=== PATIENT | male | born 1960 | race Caucasian/White ===

== ENCOUNTER 2023-10-12 20:00 | Inpatient (IN) | payer BC, SELFPAY ==
[2023-10-12] VITALS (9 sets, daily range): BP systolic 120–156; BP diastolic 77–98; BMI 26.1; BMI 25.6
[2023-10-12 14:52] LABS: % Basophils 0.5 % (0-2); % Eosinophils 5.4 % (0-6); % Immature Granulocytes 0.2 % (0-0.5); % Lymphocytes 34.8 % (20.5-51.1); % Monocytes 10.9 % (1.7-9.3); % Neutrophils 48.2 % (42.2-75.2); Absolute Eosinophils 0.5 10^3/uL (0-0.7); Absolute Lymphocytes 3.1 10^3/uL (1.2-3.4); Absolute Neutrophils 4.3 10^3/uL (1.4-6.5); Hematocrit 42.8 % (39.0-52.0); Hemoglobin 14.6 g/dL (13.0-18.0); Mean Corp Hgb Conc. 34.1 g/dL (33.0-37.0); Mean Corpuscular Volume 90.9 fL (80.0-94.0); Mean Platelet Volume 10.5 fL (7.4-10.4); Nucleated Red Blood Cells % 0 % (-); Platelet Count 241 10^3/uL (130-400); Red Blood Cell Count 4.71 10^6/uL (4.70-6.10); Red Cell Dist. Width 12.7 % (11.5-14.5); White Blood Cell Count 8.9 10^3/uL (4.8-10.8)
[2023-10-12 15:04] LABS: ALT (SGPT) 40 U/L (0-50); AST (SGOT) 43 U/L (17-59); Albumin 4.5 g/dl (3.5-5.0); Alkaline Phosphatase 55 U/L (38-126); Blood Urea Nitrogen 15 mg/dl (9-20); Calcium 9.6 mg/dl (8.4-10.2); Carbon Dioxide 30 mmol/L (22-30); Chloride 104 mmol/L (98-107); Glucose 103 mg/dl (70-99); Potassium 4.5 mmol/L (3.5-5.1); Sodium 138 mmol/L (135-145); Total Bilirubin 0.9 mg/dl (0.2-1.3); Total Protein 7.3 g/dl (6.3-8.2); eGFR > 60.00
--- NOTE | 2023-10-12 15:24 | EDRN ---
Pt revitalized. Pt states he is in severe pain and that he needs a CT scan and pain medications, informed that we will be getting him a room and having an ER doctor evaluate him and they can order imaging and medications.
[2023-10-12 15:29] LABS: Lipase > 4000 U/L (23-300)
[2023-10-12] MEDS: DILAUDID 0.5 MG IV ×3 (15:44→22:27)
[2023-10-12] MEDS: ZOFRAN 4 MG IV (15:45)
--- NOTE | 2023-10-12 15:47 | ED.GENMED ---
History of Present Illness
General
Chief Complaint: Abdominal Symptoms
Source: patient
Exam Limitations: none
Time Seen by Provider: 10/12/23 15:36
Nursing documentation reviewed up to this point in time: agreed with
History of Present Illness
History of Present Illness:
Patient to ED wtih severe upper abd. pain. Pain started today. Denies fever/chills. History of pancreatitis in the past. 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 Not had pancreatitis since. +nause. No vomiting. Brought to ED
by family for eval.
Past History
Past History
ED Past Medical History: CAD, HTN, Other (duodenal ulcer, pancreatitis) and Other (ankylosing spondylitis)
ED Past Surgical History: Cholecystectomy and Other (Whipple 09/2021)
Social History
Tobacco: Non-smoker
Alcohol: None
Drug: None
Review of Systems
Review of Systems
Allergies reviewed?: Yes
All Other Systems: ROS reviewed and negative except as documented in HPI and ROS
Constitutional: Reports no symptoms
EENT: Reports no symptoms
Respiratory: Reports no symptoms
Cardiac: Reports no symptoms
ABD/GI: Reports abdominal pain (upper abd ppain)
: Reports no symptoms
Musculoskeletal: Reports no symptoms
Skin: Reports no symptoms
Neurological: Reports no symptoms
Psychiatric: Reports no symptoms
Phy Exam
General Physical Exam
General Presentation: moderate distress
General age: appears stated age
General Skin: warm and dry
General Habitus: normal
General Mental: alert
Gastrointestinal Exam
Gastrointestinal Exam: normal bowel sounds, soft, no organomegaly and guarding
Palpation: left upper quadrant: Severe tenderness and right upper quadrant: Severe tenderness
Musculoskeletal Exam
Musculoskeletal Exam: full ROM and neuro vasc intact
Skin Exam
Skin Exam: normal color, warm/dry and no rash
Psychiatric Exam
Psychiatric Exam: normal mood/affect
Course
Orders/Labs/Results
Orders:
Orders
10/12/23 14:38
Complete Blood Count/With Diff Urgent
Comprehensive Metabolic Panel Urgent
Lipase Urgent
10/12/23 15:43
HYDROmorphone [Dilaudid] 0.5 mg .ROUTE .STK-MED ONE
Ondansetron Injectable [Zofran] 4 mg .ROUTE .STK-MED ONE
10/12/23 15:44
HYDROmorphone [Dilaudid] 0.5 mg IV NOW STA
10/12/23 15:45
CT Abd/pel W Iv And Oral Contr Urgent
Comment:
Reason For Exam: abd. pain. [facility] whipple
Iohexol [Omnipaque] See Protocol PO NOW STA
Ondansetron Injectable [Zofran] 4 mg IV NOW STA
10/12/23 15:46
0.9% Sodium Chloride 1000 ml [Nss] 1,000 ml IV BOLUS
10/12/23 16:03
HYDROmorphone [Dilaudid] 0.5 mg IV NOW STA
10/12/23 17:09
HYDROmorphone [Dilaudid] 1 mg IV NOW STA
10/12/23 19:15
0.9% Sodium Chloride 1000 ml [Nss] 1,000 ml IV 125 mls/hr
10/12/23 19:28
Admit/Transfer Patient As Directed
Co-Sign Provider:
Level of Care: Inpatient admission
Assign to:: Medical/Surgical
Physician / Group: hta,ash
Diagnosis: acute pancreatitis
Reason for Hospitalization: acute pancreatitis
Expected length of stay greater than two midnights?: Yes
ELOS- Estimated Length of Stay in days: 3
I certify the patient meets the requirements for IP care: Yes
10/12/23 19:30
Code Status As Directed
Resuscitation Status: Full Code
PRN Pain Medication Management As Directed
May give lesser potent ordered pain med per pt: Yes
preference::
Protocol:: Medication orders for pain may be administered in a
manner that supports deferring to patient preference
when the pt is:
- Requesting an ordered lesser potent pain medication.
Least to most potent pain medications are defined
as: acetaminophen < NSAID < tramadol < opioids
(morphine, oxycodone, hydromorphone).
- Requesting a lesser dose of the same medication IF
ORDERED.
- Requesting a less intrusive route of administration
if both routes are prescribed by the provider (PO <
IV).
10/12/23 20:33
HYDROmorphone [Dilaudid] 1 mg IV Q3HPRN PRN
HydrALAZINE [Apresoline] 10 mg IV Q6HPRN PRN
Lactated Ringers [Lr] 1,000 ml IV 200 mls/hr
10/12/23 20:33
GASTROINTESTINAL CONSULT Routine
Consulting Provider: Clay Paiz
Was physician already notified: Yes
Activity As Directed
Activity Level: As Tolerated
Vital Signs As Directed
Frequency: Per unit guidelines
DX Deep Vein Thrombosis Video Routine
10/12/23 21:14
Triglycerides Urgent
Comment: If not done in the ED
10/13/23 Breakfast
NPO
Allow oral meds: Yes
Allow clear liquids: No
C-Reactive Protein IN AM
Cardiovascular Evaluation IN AM
Is patient fasting: Yes
Complete Blood Count/No Diff IN AM
Lipase IN AM
10/13/23 08:00
Pantoprazole [Protonix IV] 40 mg IV DAILY
10/13/23 18:00
Enoxaparin Sodium [Lovenox] 40 mg SC QPM
10/14/23 06:00
Complete Blood Count/No Diff IN AM
Lipase IN AM
10/15/23 06:00
Complete Blood Count/No Diff IN AM
Lipase IN AM
10/16/23 06:00
Complete Blood Count/No Diff IN AM
Lipase IN AM
10/17/23 06:00
Complete Blood Count/No Diff IN AM
Lipase IN AM
Abnormal Lab Results
10/12/23
14:38
MPV 10.5 H fL
(7.4-10.4)
Absolute Monos (auto) 1.0 H 10^3/uL
(0.1-0.6)
Monocytes % 10.9 H %
(1.7-9.3)
Glucose 103 H mg/dl
(70-99)
Lipase > 4000 H* U/L
(23-300)
10/12/23 14:38
10/12/23 14:38
Vital Signs
Initial and Last Documented VS:
Initial Vital Signs
Temp Pulse Resp BP Pulse Ox
98.0 F 72 16 137/96 98
10/12/23 14:31 10/12/23 14:31 10/12/23 14:31 10/12/23 14:31 10/12/23 14:31
Last Documented Vital Signs
Temp Pulse Resp BP Pulse Ox
97.4 F 67 20 140/85 97
10/12/23 20:43 10/12/23 20:43 10/12/23 20:43 10/12/23 20:43 10/12/23 20:43
*Radiology
Radiology exam reviewed: radiology read reviewed
*Pulse Oximetry
Patient hypoxic: no
*Critical Care Note
Total Time (30-74mins, 75-104mins- exclusive of procedures): Not Applicable
Update Note
Update Note:
Lipase >4000, severe upper abd. pain. Will admit to hospitalist for pancreatitis. Pain meds, IVF in ED.
ED Attending Note
-
Portions of this chart may have been created with voice recognition software.� Occasional wrong word or��sound alike� substitutions may have occurred due to the inherent limitations of voice recognition software.
Discharge Plan
Departure
Patient Disposition: Admit
Date of Disposition: 10/12/23
Time of Disposition: 19:02
Presentation/result/management discussed w/ accepting MD/DO: Hospitalist
Patient with high blood pressure during this ER visit?: No
Condition: Fair
Covid-19: Not Applicable
Discharge Problem:
Acute pancreatitis
Interventions
Interventions:
*Risk Screen - Suicide Last Done: 10/12/23 20:25
*General Assessment Last Done: 10/12/23 20:25
*Neglect/Abuse Screening Last Done: 10/12/23 20:25
ED- Fall Risk Assessment Last Done: 10/12/23 16:20
*ED COVID-19 Vaccine History Last Done: 10/12/23 20:25
*Nursing Disposition Last Done: 10/12/23 20:25
ZY-Uzxsik-Yjqbbvgely Assessment Last Done: 10/12/23 16:20
Discharge Date and Time
Discharge Date/Time: 10/12/23 20:26
[2023-10-12] MEDS: NSS 1000 IV ×2 (15:53→19:53)
[2023-10-12] MEDS: OMNIPAQUE 50 ML PO (15:58)
[2023-10-12] MEDS: DILAUDID 1 MG IV ×2 (17:18→20:38)
--- NOTE | 2023-10-12 19:12 | HPS.HSE ---
Family Physician
-
Family Physician: * NONE
Chief Complaint
-
abdominal pain
History of Present Illness
62 year old with PMH FOR CAD, HTN, Pancreatitis, ankylosing spondylitis presented to us with severe upper abd. pain radiating to left side back. Pain started today. denied n/v. Denies fever/chills. Patient denies headache, dizziness, syncopal
episode. Patient denied chest pain or short of breath.patient denied dysuria hematuria.
Noted elevated lipase in ER. CT with Acute interstitial edematous pancreatitis. Patient received Dilaudid, normal saline, Zofran in ER. Admitted for further management
Medical History
Past Medical History
Past Medical History: Reports Other
Additional Past Medical History:
Coronary artery disease
hypertension
Duodenal ulcer
ankylosing spondylitis
Past Surgical History: Reports Other
Additional Past Surgical History:
Whipple surgery
cholecystectomy
Social History
Tobacco: Former Smoker
Alcohol: Daily (Whine)
Drug: None
Family History
Family History: Not pertinent
Allergies / Home Medications
Allergies reflects when Allergies were last updated in [employer].
Home Medications with original date entered in [employer]
Allergy/Medication List:
Allergies
Allergy/AdvReac Type Severity Reaction Status Date / Time
No Known Allergies Allergy Verified 10/12/23 14:35
Review of Systems
-
Constitutional: Reports No Symptoms
EENT: Reports No Symptoms
Respiratory: Reports No Symptoms
Cardiac: Reports No Symptoms
Abdomen/GI: Reports Abdominal Pain
: Reports No Symptoms
Musculoskeletal: Reports No Symptoms
Skin: Reports No Symptoms
Neurological: Reports No Symptoms
Endocrine: Reports No Symptoms
Hematologic/Lymphatic: Reports No Symptoms
Psych: Reports No Symptoms
Physical Exam
Vital Signs
Vital Signs
Temp Pulse Resp BP Pulse Ox
98.2 F 71 22 146/96 95
10/12/23 15:22 10/12/23 18:30 10/12/23 18:30 10/12/23 18:26 10/12/23 18:30
Physical Exam
General: Well Developed, Well Nourished and No Apparent Distress
HEENT: NormoCephalic, Moist mucous membranes and Atraumatic
Respiratory: Clear
Cardiac: S1/S2 and Regular Rhythm; No Murmur or Rub
GI: Soft, Non Distended, Normal Bowel Sounds and Tender; No Organomegaly
Rectal: Deferred by Provider
Musculoskeletal: No Clubbing, No Cyanosis and No Edema
Skin: No Rash
Neuro: Nonfocal/grossly intact
Laboratory Results
-
10/12/23 14:38
10/12/23 14:38
Laboratory Results
Total Bilirubin 0.9 mg/dl (0.2-1.3) 10/12/23 14:38
AST 43 U/L (17-59) 10/12/23 14:38
ALT 40 U/L (0-50) 10/12/23 14:38
Alkaline Phosphatase 55 U/L (38-126) 10/12/23 14:38
Lipase > 4000 U/L (23-300) H* 10/12/23 14:38
Data Reviewed
-
CT Scan: Report Reviewed by me
Lab Data: Labs Reviewed by me
Impression/Plan
-
#acute pancreatitis
-keep NPO
-LR 150cc/hr
-GI consult
-Lipase >4000
-Dilaudid prn for pain
-IV PPI
-CT with Acute interstitial edematous pancreatitis. No loculated peripancreatic fluid collection. Previous Whipple procedure.
2. Midline anterior abdominal wall incisional hernia containing segments of nondilated small bowel.
3. Colonic diverticulosis.
#hxt of Whipple surgery
#s/p Cholecystectomy
#hxt of duodenal ulcer
#hxt of HTN/CAD
-hydralazine prn for SBp>160
#DVT prophylaxis
-scd
#CODE status
-full code
--- NOTE | 2023-10-12 19:43 | W.PN.UPDATE ---
Update Note
Progress Note Update
This note serves as an addendum to the H&P by beader tender RON Palak LOWE
HPI
62M HX Whipple procedure for precancer of pancreas in [place] September 2021 , HX pancreatitis , Duodenal ulcer a/w abrupt onset of severe upper abdominal pain. No nausea. No vomiting.Reports drink wine last night
PMHx
CAD, HTN, Other (duodenal ulcer, pancreatitis) and Other (ankylosing spondylitis)
PSHx
Cholecystectomy and Other (Whipple 09/2021)
Vital Signs
Temp Pulse Resp BP Pulse Ox
98.2 F 71 22 146/96 95
10/12/23 15:22 10/12/23 18:30 10/12/23 18:30 10/12/23 18:26 10/12/23 18:30
PE
Gen: not toxic
HEENT: anicteric
Neck: supple
Lungs: CTA
Cor: RRR S1 S2
Abdomen: tender epigastrium , NRT , NG POS BS
COOK HELPER MEAT: AAO3 NFND
MS: no edema
Psych: appropriate
Data
Nl CBC
Lipase > [address] Abd/pel W Iv And Oral Contr
1. Acute interstitial edematous pancreatitis. No loculated peripancreatic fluid collection. Previous Whipple procedure.
2. Midline anterior abdominal wall incisional hernia containing segments of nondilated small bowel.
3. Colonic diverticulosis.
4. Additional chronic findings, as detailed above
NO PRIOR hospitalist admission:
ASSESSMENT & PLAN
Pending Rx reconciliation
Acute pancreatitis; recurrent
Unclear etiology - suspect ETOH
HX pancreatitis ,
HX Whipple procedure for precancer of pancreas in [place] September 2021 - removed hard of the pancreas
- NPO
- LR IV 200cc/H
- PRN Analgesia , Anti emetics
- GI consult
DVT Px: LMWH
Code: Full code
IP MS
--- NOTE | 2023-10-12 20:45 | PTCARENOTE ---
Pt transferred from ED. Pt AAOX3, able to make needs known, VSS. Pt having 9/10 pain. Pt oriented to unit, call quiñonez within reach, bed in lowest position. Will continue with current plan.
[2023-10-12] MEDS: LR 1000 IV (21:36)
[2023-10-12 21:41] LABS: Triglycerides 56 mg/dl (10-149)
[2023-10-12] MEDS: COMPAZINE 5 MG IV (22:28)
[2023-10-13] MEDS: DILAUDID 1 MG IV ×2 (01:27→07:56)
[2023-10-13] MEDS: LR 1000 IV ×5 (02:37→22:49)
[2023-10-13 07:00] VITALS: BP 124/80
[2023-10-13] MEDS: NSS (PRESERVATIVE FREE) 10 ML IV (07:55)
[2023-10-13] MEDS: PROTONIX IV 40 MG IV (07:55)
[2023-10-13 08:28] LABS: Hematocrit 42.2 % (39.0-52.0); Hemoglobin 14.6 g/dL (13.0-18.0); Mean Corp Hgb Conc. 34.6 g/dL (33.0-37.0); Mean Corpuscular Hgb 31.6 pg (27.0-31.0); Mean Corpuscular Volume 91.3 fL (80.0-94.0); Mean Platelet Volume 10.5 fL (7.4-10.4); Platelet Count 209 10^3/uL (130-400); Red Blood Cell Count 4.62 10^6/uL (4.70-6.10); Red Cell Dist. Width 12.9 % (11.5-14.5); White Blood Cell Count 11.6 10^3/uL (4.8-10.8)
[2023-10-13 09:50] LABS: HDL Cholesterol 50 mg/dl; LDL Cholesterol, Calculated 26 mg/dl; Total Cholesterol 92 mg/dl (50-199); Triglyceride 83 mg/dl (10-149); Very Low Density Lipoprotein 16 mg/dl (0-30)
[2023-10-13 10:06] LABS: Lipase 3834 U/L (23-300)
--- NOTE | 2023-10-13 11:29 | W.PN.HOSP.TC ---
Today's Communication/Plan
-
cont IVF
pain mgmt
GI consult
Assessment / Plan
Assessment / Plan
62yo M with PMHx of CAD, COPD, HLD, HTN, Hx of IPMN s/p Whipple in 2021 came with severe abdominal pain started at noon on the day of admission, found acute poancreatitis. Patient used to have a glass of wine with dinner.
A/P:
#Acute alcohol-induced pancreatitis
#Hx of Whipple with resultant pancreatic insufficiency
CT showed postOP changes without new cyst
Triglycerides, calcium is WNL
Gall bladder absent'
Emphasize alcohol abstinence
NPO and advance diet as tolerated
IVF
Pain mgmt
GI consult
#Essential HTN
#HLD
#COPD not in exacerbation
cont home meds
#Minimal leukocytosis
no signs of infection
follow cbc and fever curve
#Hepatic cyst
#Midline abdominal postOP hernia
#Diverticulosis w/o diverticulitis
#Grade 1 antherolisthesis of L5 on S1
#Mild BPH
Follow with PCP upon D/C
DVT ppx on lovenox
full code
I have spent at least 56min reviewing chart, test results, communication with consultants and direct patient care
Anticipated Discharge: 24 - 48 hours
Subjective/Interval History
-
Date of Service: October 13, 2023
Objective Data
-
Labs:
Laboratory Results
10/13/23
08:09
WBC 11.6 H
Hgb 14.6
Hct 42.2
Plt Count 209
Vital Signs:
Vital Signs
Temp Pulse Resp BP Pulse Ox
99.3 F 91 16 124/80 94
10/13/23 07:00 10/13/23 07:00 10/13/23 07:00 10/13/23 07:00 10/13/23 07:00
I&O
10/12/23 10/13/23 10/14/23
06:59 06:59 06:59
Intake Total 1919 / 1919
Output Total 300 / 300
Balance 1620 / 1620
Review of Systems
-
Abdomen/GI: Reports Abdominal Pain
Physical Exam
-
General: Well Developed and Well Nourished
Respiratory: Clear to Auscultation
GI: Nondistended and Tender
Genito-urinary: No Costovertebral Tender
Musculoskeletal: No Clubbing, No Cyanosis and No Edema
Skin: Warm
Neuro: Awake, Alert, Oriented and AO x 3
Psych: Calm
--- NOTE | 2023-10-13 12:44 | CON.GI ---
Addendum entered and electronically signed by Clay Paiz MD 10/13/23 17:25:
clear liquid diet
Addendum entered and electronically signed by Clay Paiz MD 10/13/23 16:13:
I saw and examined the patient.
The CHARGEBACK ANALYST's note was reviewed and I agree with the note.
Impression:
Recurrent Acute pancreatitis ( 2 episodes in the past)
S/P Whipple (2021)-> [facility], secondary to IPMN head of the pancreas.
Ankylosing spondylitis on Humira
plan
Possible etiology alcohol. Liver test normal. TG normal.
N.p.o.
Continue IV fluid
Pain management as per medical team
Will check IgG4
Advised on alcohol abstinence
Patient follows up with pancreatic surgeon at [facility]. Advised to follow-up after discharge
Original Note:
Consultation
-
Date/Time Consultation Requested: 10/12/232032
Date/Time Consultation Performed: 10/13/23 1220
Requesting Provider: SUKHWINDER Armenta
Performing Provider: Dr. Paiz/SUKHWINDER Mckenna
Reason for Consultation: pancreatitis
Medical History
Chief Complaint / HPI
Chief Complaint: abd pain
History of Present Illness:
62-year-old male with past medical history of CAD, hypertension, ankylosing spondylitis currently on Humira, history of pancreatitis first episode in 2006 unknown etiology, repeat episode of pancreatitis August 2021 with imaging finding IPMN with
further workup discovering malignant cells with subsequent Whipple at [facility] in 2021. History of anastomotic ulcer with GI bleed with treatment with 'cauterization' and Protonix. Repeat endoscopy with documented healing. Who was last followed with
his GI approximately 1 year ago in [place] who presents to the emergency room with acute onset of abdominal pain. Asked to evaluate for pancreatitis. The patient states that last evening he developed acute onset of abdominal pain which was just
the left of the umbilicus. This was sharp and dull with radiation around to the left flank. Movement made worse. Pain medication makes better. Was associated with some chills. Patient had some mild nausea although he felt this was secondary to
pain medication. This was reminiscent of his prior attacks of pancreatitis although not as bad as his first episode. He proceeded to come to the emergency department. He states the pain is improved from arrival. The pain is still present. He
felt warm last evening and a little bit cold at the present time. He denies any fevers, vomiting, melena, hematochezia, acholic stools, bilirubinuria, dysphagia or odynophagia. no early satiety or unintentional weight loss. The patient does not
smoke. He drinks approximately 2 glasses of wine daily. He does not drink more alcohol than that. He has no family history of pancreatitis. He has no family history of GI malignancy. He has no new changes in medications. His triglycerides are
normal. He is on Creon chronically after the Whipple. His last colonoscopy was approximately 3 years ago. He does not recall any polyps at that time. He believes he has had colon polyps in the past. He is currently getting lactated Ringer's at
200 cc an hour. WBC 11.6 (up from 8.9), hemoglobin 14.6 same from yesterday 14.6, hematocrit 42.2 down from 42.8, platelets 209,Sodium 138, potassium 4.5, chloride 104, CO2 30, BUN 15, creatinine 0.7, glucose 103, calcium 9.6, total bilirubin 0.9,
AST 43, ALT 40, alk phos 55, CRP 23.8, albumin 4.5, triglycerides 83, lipase 3834 down from greater than 4000. Patient's temperature this morning was 99.3, pulse 91, BP 124/80.
Past Medical History
Past Medical History: CAD, HTN and Other (Pancreatitis (2006, 2021), IPMN with malignant cells requiring Whipple, ankylosing spondylitis on Humira, anastomotic ulcer/Whipple)
Past Surgical History: Orthopedic (Metatarsal removal, ulnar nerve repair) and Other (Whipple)
Social History
Tobacco: Former Smoker
Alcohol: Daily (2 to 3 glasses wine daily)
Drug: None
Personal:
Living: With Family
Family History
Family History: Other (No family history of gastrointestinal malignancy or IBD)
Allergies / Home Medications
Allergy/AdvReac Type Severity Reaction Status Date / Time
No Known Allergies Allergy Verified 10/12/23 14:35
�Medication �Instructions �Recorded
adalimumab 40 mg/0.8 mL 40 mg SC Q2W Autoimmune Disorder 10/12/23
subcutaneous syringe kit (Humira)
albuterol sulfate 90 mcg/actuation 2 puff inhalation R Q6HPRN PRN 10/12/23
aerosol inhaler sob/wheezing
alprazolam 1 mg tablet 1 mg PO BIDPRN PRN anxiety 10/12/23
aspirin 81 mg tablet,delayed 81 mg PO DAILY Blood Clot 10/12/23
release Prevention/Tx
ezetimibe 10 mg tablet 10 mg PO DAILY High Cholesterol 10/12/23
famotidine 40 mg tablet 40 mg PO HS Gastrointestinal Issue 10/12/23
fluticasone propionate 50 1 spray intranasal DAILYPRN PRN 10/12/23
mcg/actuation nasal allergies
spray,suspension
rzpkpq-maozvxqe-ixuelxn 1 cap PO BID@0800,1200 10/12/23
24,000-76,000-120,000 unit Gastrointestinal Issue
capsule,delayed rel (Creon)
awymug-iajkvido-jtstprh 2 - 3 cap PO QPM Gastrointestinal 10/12/23
24,000-76,000-120,000 unit Issue
capsule,delayed rel (Creon)
metoprolol succinate 25 mg 25 mg PO DAILY Heart Failure 10/12/23
tablet,extended release 24 hr
pantoprazole 40 mg tablet,delayed 40 mg PO DAILY Gastrointestinal 10/12/23
release Issue
rosuvastatin 40 mg tablet 40 mg PO DAILY High Cholesterol 10/12/23
valsartan 40 mg tablet 40 mg PO DAILY Blood Pressure 10/12/23
Review of Systems
-
All other systems: A 12 pt ROS was Negative except as stated above in HPI
Vital Signs
Temp Pulse Resp BP Pulse Ox
99.3 F 91 16 124/80 94
10/13/23 07:00 10/13/23 07:00 10/13/23 07:00 10/13/23 07:00 10/13/23 07:00
Physical Exam
Exam
General: No Apparent Distress
HEENT: Anicteric
Respiratory: Clear
Cardiac: Regular Rhythm
GI: Soft, Non Distended, Normal Bowel Sounds and Tender (To the left of the umbilicus extending to left flank)
Musculoskeletal: No Edema
Skin: Warm and Dry
Neuro: AO x 3
Psych: Calm
Results
WBC 11.6 10^3/uL (4.8-10.8) H 10/13/23 08:09
Hgb 14.6 g/dL (13.0-18.0) 10/13/23 08:09
Hct 42.2 % (39.0-52.0) 10/13/23 08:09
MCV 91.3 fL (80.0-94.0) 10/13/23 08:09
Plt Count 209 10^3/uL (130-400) 10/13/23 08:09
Absolute Neuts (auto) 4.3 10^3/uL (1.4-6.5) 10/12/23 14:38
Sodium 138 mmol/L (135-145) 10/12/23 14:38
Potassium 4.5 mmol/L (3.5-5.1) 10/12/23 14:38
Chloride 104 mmol/L (98-107) 10/12/23 14:38
Carbon Dioxide 30 mmol/L (22-30) 10/12/23 14:38
BUN 15 mg/dl (9-20) 10/12/23 14:38
Creatinine 0.7 mg/dL (0.7-1.3) 10/12/23 14:38
Calcium 9.6 mg/dl (8.4-10.2) 10/12/23 14:38
Total Bilirubin 0.9 mg/dl (0.2-1.3) 10/12/23 14:38
AST 43 U/L (17-59) 10/12/23 14:38
ALT 40 U/L (0-50) 10/12/23 14:38
Alkaline Phosphatase 55 U/L (38-126) 10/12/23 14:38
Lipase 3834 U/L (23-300) H* 10/13/23 08:09
Diagnostic Image Results:
CT of the abdomen and pelvis with oral and IV contrast 10/12/2023:
IMPRESSION:
1. Acute interstitial edematous pancreatitis. No loculated peripancreatic fluid collection. Previous Whipple procedure.
2. Midline anterior abdominal wall incisional hernia containing segments of nondilated small bowel.
3. Colonic diverticulosis.
4. Additional chronic findings, as detailed above.
Prior GI Procedures:
EGD: Less than 1 year ago (Dr. Hendrix-> [facility]) anastomotic ulcer, bleed treated with cautery per patient. PPI. Repeat endoscopy with resolution of ulceration, per patient.
Colonoscopy: Approximately 3 years ago (Dr. Hendrix-> [facility]) patient states this was 'normal'. However states he thinks he has a history of polyps in the past. Patient unsure when next colonoscopy is due.
Assessment / Plan
-
62-year-old male with past medical history of CAD, hypertension, ankylosing spondylitis currently on Humira, history of pancreatitis first episode in 2006 unknown etiology, repeat episode of pancreatitis August 2021 with imaging finding IPMN with
further workup discovering malignant cells with subsequent Whipple at [facility] in 2021. History of anastomotic ulcer with GI bleed with treatment with 'cauterization' and Protonix. Repeat endoscopy with documented healing. Who was last followed with
his GI approximately 1 year ago in [place] who presents to the emergency room with acute onset of abdominal pain. Asked to evaluate for pancreatitis. He drinks approximately 2 glasses of wine daily. He does not drink more alcohol than that. He
has no family history of pancreatitis. He has no family history of GI malignancy. He has no new changes in medications. His triglycerides are normal. He is on Creon chronically after the Whipple. His last colonoscopy was approximately 3 years
ago. He does not recall any polyps at that time. He believes he has had colon polyps in the past. He is currently getting lactated Ringer's at 200 cc an hour. WBC 11.6 (up from 8.9), hemoglobin 14.6 same from yesterday 14.6, hematocrit 42.2 down
from 42.8, platelets 209,Sodium 138, potassium 4.5, chloride 104, CO2 30, BUN 15, creatinine 0.7, glucose 103, calcium 9.6, total bilirubin 0.9, AST 43, ALT 40, alk phos 55, CRP 23.8, albumin 4.5, triglycerides 83, lipase 3834 down from greater than
4000. Patient's temperature this morning was 99.3, pulse 91, BP 124/80.
Impression:
Acute pancreatitis
Whipple (2021)-> [facility], secondary to malignant cells within IPMN head of the pancreas.
Prior history is of pancreatitis 2021 etiology unknown
Ankylosing spondylitis on Humira
Plan:
-Continue IV fluids. Currently patient is on lactated Ringer's at 200 cc an hour. However there is been no hemodilution seen on hemoglobin. Will repeat CBC now. If no hemodilution seen will give small fluid bolus as patient had mild temp this
a.m. and leukocytosis
-Sips of clears as tolerated, patient with decrease in discomfort
-CBC, BMP, LFTs, lipase and CRP in a.m.
-Check IgG4 subclasses
-Incentive spirometer
-Analgesia, has not required any since early this a.m.
-If patient with fever, increasing pain or leukocytosis would repeat imaging at 48 hours
-When tolerating diet would add Creon back on
-Continue pantoprazole 40 mg IV
-Further recommendations to be forthcoming
-Discussed would not drink any further alcohol as could be offending agent
Data Reviewed
-
CT Scan: Report Reviewed by me
-
-
Thank you for consultation and allowing me to participate in the patient's care. Please call the personal vehicle advisor GI physician during the after hours with any questions or concerns.
[2023-10-13 14:53] LABS: Hematocrit 42.8 % (39.0-52.0); Hemoglobin 14.9 g/dL (13.0-18.0); Mean Corp Hgb Conc. 34.8 g/dL (33.0-37.0); Mean Corpuscular Hgb 31.1 pg (27.0-31.0); Mean Corpuscular Volume 89.4 fL (80.0-94.0); Mean Platelet Volume 11.1 fL (7.4-10.4); Platelet Count 204 10^3/uL (130-400); Red Blood Cell Count 4.79 10^6/uL (4.70-6.10); White Blood Cell Count 13.3 10^3/uL (4.8-10.8)
[2023-10-13 15:00] VITALS: BP 110/72
--- NOTE | 2023-10-13 15:38 | CM ---
Met with patient and his at the bedside; initial assessment completed
Pharmacy verified: [facility], [id number] [facility]
Does not have a Primary Care Physician in this area; provided the following information:
[facility] the [facility]
Second Floor, [address]
[place] [address]

Patient reports that he and his live in a multilevel home; 3 steps to enter; 13-14 steps between floors; powder room on the 1st floor; 2nd floor bathroom has walk-in shower
PLOF: reported he was independent with ambulation, stairs, and ADLs; drives
DME: none
No history of SNF or Home Health
Transportation: will provide ride home
Plan: discharge to home when medically stable; no needs anticipated
[2023-10-13] MEDS: LOVENOX 40 MG SC (17:52)
[2023-10-13] MEDS: DILAUDID 0.5 MG IV (20:16)
[2023-10-13 23:37] VITALS: BP 101/67
[2023-10-14] MEDS: LR 1000 IV ×3 (03:53→14:36)
[2023-10-14 08:00] LABS: % Basophils 0.2 % (0-2); % Eosinophils 0.7 % (0-6); % Immature Granulocytes 0.4 % (0-0.5); % Lymphocytes 16.5 % (20.5-51.1); % Monocytes 9.6 % (1.7-9.3); % Neutrophils 72.6 % (42.2-75.2); Absolute Eosinophils 0.1 10^3/uL (0-0.7); Absolute Immature Granulocytes 0.1 10^3/uL (0-0.05); Absolute Lymphocytes 2.2 10^3/uL (1.2-3.4); Absolute Monocytes 1.3 10^3/uL (0.1-0.6); Absolute Neutrophils 9.6 10^3/uL (1.4-6.5); Hematocrit 40.7 % (39.0-52.0); Hemoglobin 14.1 g/dL (13.0-18.0); Mean Corp Hgb Conc. 34.6 g/dL (33.0-37.0); Mean Corpuscular Hgb 31.1 pg (27.0-31.0); Mean Corpuscular Volume 89.8 fL (80.0-94.0); Mean Platelet Volume 10.7 fL (7.4-10.4); Nucleated Red Blood Cells % 0 % (-); Platelet Count 190 10^3/uL (130-400); Red Blood Cell Count 4.53 10^6/uL (4.70-6.10); Red Cell Dist. Width 13.1 % (11.5-14.5); White Blood Cell Count 13.2 10^3/uL (4.8-10.8)
[2023-10-14 08:14] VITALS: BP 118/73
[2023-10-14] MEDS: PROTONIX IV 40 MG IV (08:20)
[2023-10-14] MEDS: NSS (PRESERVATIVE FREE) 10 ML IV (08:20)
--- NOTE | 2023-10-14 08:43 | W.PN.HOSP.TC ---
Today's Communication/Plan
-
Start CLD as patient tolerating sips of water without worsening pain
Assessment / Plan
Assessment / Plan
62yo M with PMHx of CAD, COPD, HLD, HTN, Hx of IPMN s/p Whipple in 2021 came with severe abdominal pain started at noon on the day of admission, found acute poancreatitis. Patient used to have a glass of wine with dinner.
A/P:
#Acute alcohol-induced pancreatitis
#Hx of Whipple with resultant pancreatic insufficiency
CT showed postOP changes without new cyst
Triglycerides, calcium is WNL
Gall bladder absent'
Emphasize alcohol abstinence
NPO and advance diet as tolerated
IVF
Pain mgmt
GI consult: IGG4 pending, follow up with [facility] pancreatic surgeon upon d/c
#Essential HTN
#HLD
#COPD not in exacerbation
cont home meds
#Minimal leukocytosis
no signs of infection
follow cbc and fever curve
#Hepatic cyst
#Midline abdominal postOP hernia
#Diverticulosis w/o diverticulitis
#Grade 1 anterolisthesis of L5 on S1
#Mild BPH
Follow with PCP upon D/C
DVT ppx on lovenox
full code
I have spent at least 36min reviewing chart, test results, communication with consultants and direct patient care
Anticipated Discharge: > 48 hours
Subjective/Interval History
-
Date of Service: October 14, 2023
Objective Data
-
Labs:
Laboratory Results
10/14/23
07:30
WBC 13.2 H
Hgb 14.1
Hct 40.7
Plt Count 190
Sodium Pending
Potassium Pending
Chloride Pending
Carbon Dioxide Pending
BUN Pending
Creatinine Pending
Glucose Pending
Calcium Pending
Total Bilirubin Pending
AST Pending
ALT Pending
Alkaline Phosphatase Pending
Vital Signs:
Vital Signs
Temp Pulse Resp BP Pulse Ox
98.5 F 117 16 101/67 93
10/14/23 04:17 10/13/23 23:37 10/13/23 23:37 10/13/23 23:37 10/13/23 23:37
I&O
10/13/23 10/14/23 10/15/23
06:59 06:59 06:59
Intake Total 1920 / 1920 3640 / 3640
Output Total 300 / 300
Balance 1620 / 1620 3640 / 3640
Review of Systems
-
History Source: Patient
All other systems: Reviewed and negative
Abdomen/GI: Reports Abdominal Pain
Physical Exam
-
General: No Apparent Distress
Respiratory: Clear to Auscultation
Cardiac: Regular Rhythm
GI: Soft, Nontender and Nondistended
Musculoskeletal: No Clubbing, No Cyanosis and No Edema
Neuro: Awake, Alert, Oriented and AO x 3
Psych: Calm
[2023-10-14 09:10] LABS: ALT (SGPT) 20 U/L (0-50); AST (SGOT) 23 U/L (17-59); Albumin 3.1 g/dl (3.5-5.0); Alkaline Phosphatase 46 U/L (38-126); Blood Urea Nitrogen 6 mg/dl (9-20); Calcium 8.3 mg/dl (8.4-10.2); Carbon Dioxide 23 mmol/L (22-30); Chloride 103 mmol/L (98-107); Direct Bilirubin 0.2 mg/dl (0.0-0.4); Estimated Creatinine Clearance > 125 ml/min; Glucose 100 mg/dl (70-99); Lipase 767 U/L (23-300); Sodium 133 mmol/L (135-145); Total Bilirubin 1.3 mg/dl (0.2-1.3); Total Protein 5.5 g/dl (6.3-8.2); eGFR > 60.00
--- NOTE | 2023-10-14 10:59 | W.PN.GI.CBS2 ---
Today's Communication / Plan
-
Clinically improving. Decrease LR to 100 cc/hr. Trial of clear liquids, advance diet as tolerated. Start bowel regimen.
Assessment / Plan
-
62-year-old male with past medical history of CAD, hypertension, ankylosing spondylitis currently on Humira, hx of recurrent pancreatitis (2006, 2021), hx of IMPN s/p whipple (2021, [facility]), hx of GIB 2/2 anastamotic ulcer admitted with recurrent
pancreatitis of unclear etiology.
Acute pancreatitis--recurrent (unclear if 2nd or 3rd episode)...
-s/p whipple 2/2 HOP IPMN c/b anastomotic ulcer
-clinically improving, BUN is 6, which is reassuring
-Lipase has improved significantly, Lipase 3834 --> 767
-CRP 23.80 --> 144.70; given such clinical improvement overnight, would hold off on any repeat imaging and see how he does clinically in the next 24 hours
-trial of clear liquids
-bowel regimen-- miralax started today, if no BM by tonight, will add senakot 2 tabs before bedtime
-discussed MRI/MRCP with patient, as unclear etiology of pancreatitis; possibly etoh? IgG4 subclasses pending; patient would like to discuss with his surgeons at [facility] and will let me know what he decides, may want to defer additional workup and
complete with his outpatient doctors.
-will decrease fluids to 100 cc/hr, can increase if patient not tolerating clears
-if tolerates diet today, can advance for dinner or tomorrow, whichever patient prefers
-will change pantoprazole to PO tomorrow
Subjective
Subjective
Date of Service: October 14, 2023
Patient clinically feels well today, states he has not moved his bowels in 2 days. He is passing gas. White count is 13.2, from 13.3 yesterday. Lipase 3834 --> 767, no LFTs repeated today. His CRP did significantly increase overnight from 23.80
--> 144.70
Objective
Data Reviewed
Laboratory Data:
Laboratory Results
10/14/23 07:30
10/14/23 07:30
Laboratory Results
Total Bilirubin 1.3 mg/dl (0.2-1.3) 10/14/23 07:30
AST 23 U/L (17-59) 10/14/23 07:30
ALT 20 U/L (0-50) 10/14/23 07:30
Alkaline Phosphatase 46 U/L (38-126) 10/14/23 07:30
Lipase 767 U/L (23-300) H 10/14/23 07:30
Vital Signs and I&O:
Vital Signs
Temp Pulse Resp BP Pulse Ox
98.4 F 112 18 118/73 95
10/14/23 08:14 10/14/23 08:14 10/14/23 08:14 10/14/23 08:14 10/14/23 08:14
I&O
10/13/23 10/14/23 10/15/23
06:59 06:59 06:59
Intake Total 1920 / 1920 3640 / 3640
Output Total 300 / 300
Balance 1620 / 1620 3640 / 3640
Physical Exam
Physical Exam
GENERAL: In no acute distress, appears comfortable
ABDOMEN: +BS; soft,mild TTP in RUQ and epigastrium, no rebound or guarding. Nondistended
[2023-10-14] MEDS: MIRALAX 17 GRAMS PO (11:33)
--- NOTE | 2023-10-14 15:22 | CM ---
Patient chart reviewed.
Plan: Discharge to home when stable. No needs identified.
[2023-10-14 16:03] VITALS: BP 112/75
[2023-10-14] MEDS: LOVENOX 40 MG SC (17:23)
[2023-10-14] MEDS: DILAUDID 0.5 MG IV (21:15)
[2023-10-14 23:15] VITALS: BP 125/83
[2023-10-15 00:27] LABS: IgG Subclass 4 46 mg/dL (1-123)
[2023-10-15] MEDS: LR 1000 IV (00:33)
[2023-10-15 07:40] VITALS: BP 112/76
[2023-10-15] MEDS: MIRALAX 17 GRAMS PO (08:40)
[2023-10-15] MEDS: NSS (PRESERVATIVE FREE) 10 ML IV (08:41)
[2023-10-15] MEDS: PROTONIX IV 40 MG IV (08:41)
[2023-10-15 08:59] LABS: Hemoglobin 12.8 g/dL (13.0-18.0); Mean Corp Hgb Conc. 34.6 g/dL (33.0-37.0); Mean Corpuscular Hgb 31.6 pg (27.0-31.0); Mean Corpuscular Volume 91.4 fL (80.0-94.0); Platelet Count 170 10^3/uL (130-400); Red Blood Cell Count 4.05 10^6/uL (4.70-6.10); White Blood Cell Count 11.7 10^3/uL (4.8-10.8)
[2023-10-15 09:35] LABS: Blood Urea Nitrogen 4 mg/dl (9-20); Calcium 8.2 mg/dl (8.4-10.2); Carbon Dioxide 24 mmol/L (22-30); Chloride 104 mmol/L (98-107); Estimated Creatinine Clearance > 125 ml/min; Glucose 95 mg/dl (70-99); Lipase 103 U/L (23-300); Potassium 3.9 mmol/L (3.5-5.1); Sodium 134 mmol/L (135-145); eGFR > 60.00
--- NOTE | 2023-10-15 09:55 | W.PN.GI.CBS2 ---
Today's Communication / Plan
-
Advance diet. Okay to discharge, will f/u with his surgeons at [facility]
Assessment / Plan
-
62-year-old male with past medical history of CAD, hypertension, ankylosing spondylitis currently on Humira, hx of recurrent pancreatitis (2006, 2021), hx of IMPN s/p whipple (2021, [facility]), hx of GIB 2/2 anastamotic ulcer admitted with recurrent
pancreatitis of unclear etiology.
Acute pancreatitis--recurrent (unclear if 2nd or 3rd episode)...
-s/p whipple 2/2 HOP IPMN c/b anastomotic ulcer
-clinically improving, BUN is 4
-Lipase has improved significantly, Lipase 3834 --> 767--> 103
-CRP 23.80 --> 144.70; given such clinical improvement overnight, would hold off on any repeat imaging
-advance to low fat/low residue diet
-bowel regimen
-IgG4 46 (normal)
-okay to discharge from a GI perspective, plans to f/u with his doctors at [facility]
GI will sign off, please call with questions
Subjective
Subjective
Date of Service: October 15, 2023
Patient feels great this morning, wants to advance to regular diet. He would like to be discharged today. He plans to follow-up with his doctors at [facility], imaging reports/discs acquired and already in transit.
Objective
Data Reviewed
Laboratory Data:
Laboratory Results
10/15/23 07:36
10/15/23 07:36
Laboratory Results
Total Bilirubin 1.3 mg/dl (0.2-1.3) 10/14/23 07:30
AST 23 U/L (17-59) 10/14/23 07:30
ALT 20 U/L (0-50) 10/14/23 07:30
Alkaline Phosphatase 46 U/L (38-126) 10/14/23 07:30
Lipase 103 U/L (23-300) 10/15/23 07:36
Vital Signs and I&O:
Vital Signs
Temp Pulse Resp BP Pulse Ox
98.2 F 94 16 112/76 96
10/15/23 07:40 10/15/23 07:40 10/15/23 07:40 10/15/23 07:40 10/15/23 07:40
I&O
10/14/23 10/15/23 10/16/23
06:59 06:59 06:59
Intake Total 3640 / 3640 1680 / 1680
Balance 3640 / 3640 1680 / 1680
Physical Exam
Physical Exam
GENERAL: In no acute distress, appears comfortable
ABDOMEN: +BS; soft, non-tender and non-distended; no rebound or guarding
--- NOTE | 2023-10-15 11:21 | W.PN.HOSP.TC ---
Today's Communication/Plan
-
dc
Assessment / Plan
Assessment / Plan
62yo M with PMHx of CAD, COPD, HLD, HTN, Hx of IPMN s/p Whipple in 2021 came with severe abdominal pain started at noon on the day of admission, found acute poancreatitis. Patient used to have a glass of wine with dinner. patient improved and able
to tolerate food
A/P:
#Acute alcohol-induced pancreatitis
#Hx of Whipple with resultant pancreatic insufficiency
CT showed postOP changes without new cyst
Triglycerides, calcium is WNL
Gall bladder absent'
Emphasize alcohol abstinence
NPO and advance diet as tolerated
IVF
Pain mgmt
GI consult: IGG4 pending, follow up with [facility] pancreatic surgeon upon d/c
#Essential HTN
#HLD
#COPD not in exacerbation
cont home meds
#Minimal leukocytosis
no signs of infection
follow cbc and fever curve
#Hepatic cyst
#Midline abdominal postOP hernia
#Diverticulosis w/o diverticulitis
#Grade 1 anterolisthesis of L5 on S1
#Mild BPH
Follow with PCP upon D/C
DVT ppx on lovenox
full code
I have spent at least 36min reviewing chart, test results, communication with consultants and direct patient care
Anticipated Discharge: Today
Subjective/Interval History
-
Date of Service: October 15, 2023
Objective Data
-
Labs:
Laboratory Results
10/15/23
07:36
WBC 11.7 H
Hgb 12.8 L
Hct 37.0 L
Plt Count 170
Sodium 134 L
Potassium 3.9
Chloride 104
Carbon Dioxide 24
BUN 4 L
Creatinine 0.5 L
Glucose 95
Calcium 8.2 L
Vital Signs:
Vital Signs
Temp Pulse Resp BP Pulse Ox
98.2 F 94 16 112/76 96
10/15/23 07:40 10/15/23 07:40 10/15/23 07:40 10/15/23 07:40 10/15/23 07:40
I&O
10/14/23 10/15/23 10/16/23
06:59 06:59 06:59
Intake Total 3640 / 3640 1680 / 1680
Balance 3640 / 3640 1680 / 1680
Review of Systems
-
All other systems: Reviewed and negative
Physical Exam
-
General: Well Developed, Well Nourished and No Apparent Distress
Respiratory: Clear to Auscultation
Cardiac: Regular Rhythm; Negative Murmur
GI: Soft, Nontender and Nondistended
Genito-urinary: No Costovertebral Tender
Musculoskeletal: No Clubbing, No Cyanosis and No Edema
Skin: Warm
Neuro: Awake, Alert, Oriented and AO x 3
Psych: Calm
--- NOTE | 2023-10-15 11:22 | W.DCSUMMARY ---
Discharge Summary
Discharge Data
Date of Admission: 10/12/23
Date of Discharge: 10/15/23
-
Pending Results: No
Hospital Course
62yo M with PMHx of CAD, COPD, HLD, HTN, Hx of IPMN s/p Whipple in 2021 came with severe abdominal pain started at noon on the day of admission, found acute poancreatitis. Patient used to have a glass of wine with dinner. patient improved and on
the day of D/C has no abdominal pain and tolerated solid meal well. As per GI - recommendation for MRCP/MRI. PAtient discussed to do it with his pancreatic surgeon in [facility]. Alcohol abstinence advised. patient verbalized understanding of instructions.
Medically stable for d/c. I vargasve spent at least 36min preparing discharge, reviewing chart, test results, communication with consultants and direct patient care
Patietn was managed for:
#Acute alcohol-induced pancreatitis
#Hx of Whipple with resultant pancreatic insufficiency
#Essential HTN
#HLD
#COPD not in exacerbation
#Minimal leukocytosis
#Hepatic cyst
#Midline abdominal postOP hernia
#Diverticulosis w/o diverticulitis
#Grade 1 anterolisthesis of L5 on S1
#Mild BPH
Discharge Plan
-
Patient Disposition: Home (Routine Discharge)
Discharge Diagnosis/Procedures: acute pancreatitis
Diet: Low Fat
Activity: As tolerated
Driving Restrictions: As prior to admission
Bathing Restrictions: None
Activity Restrictions/Additional Instructions:
Follow up with your pancreatic surgeon in [place] [place]. Recommendation to discuss MRCP/MRI pancreas with your doctor. Alcohol abstinence advised
Referrals:
NONE,* [Family Provider] -
Prescriptions:
Continued
alprazolam 1 mg Tablet
1 mg PO BIDPRN PRN (Reason: anxiety)
Patient Comments:
10/12/2023: Can't find on pdmp, but showed on pt's [facility].
famotidine 40 mg Tablet
40 mg PO HS
aspirin 81 mg Tablet,Delayed Release (Dr/Ec)
81 mg PO DAILY
pantoprazole 40 mg Tablet,Delayed Release (Dr/Ec)
40 mg PO DAILY
metoprolol succinate 25 mg Tablet Extended Release 24 Hr
25 mg PO DAILY
albuterol sulfate 90 mcg/actuation Hfa Aerosol Inhaler
2 puff INHALATION R Q6HPRN PRN (Reason: sob/wheezing)
fluticasone propionate 50 mcg/actuation [place],Suspension
1 spray INTRANASAL DAILYPRN PRN (Reason: allergies)
valsartan 40 mg Tablet
40 mg PO DAILY
ezetimibe 10 mg Tablet
10 mg PO DAILY
Humira 40 mg/0.8 mL Syringe Kit
40 mg SC Q2W
rosuvastatin 40 mg Tablet
40 mg PO DAILY
Creon 24,000-76,000 -120,000 unit Capsule,Delayed Release(Dr/Ec)
1 cap PO BID@0800,1200
Creon 24,000-76,000 -120,000 unit Capsule,Delayed Release(Dr/Ec)
2 - 3 cap PO QPM
Discharge Orders:
Discharge Patient (As Directed); Ordered 10/15/23
Ordered By: Jacques Ley
Discharge Date and Time
Print Language: ESTONIAN
--- NOTE | 2023-10-15 11:51 | CM ---
Patient seen, for discharge today. Patient denies any needs from CM at this time. Patient reports he has transportation home. CM will continue to follow for all discharge planning needs.
Plan; home no needs.
[2023-10-15 11:52] VITALS: BP 115/80
== END 2023-10-15 12:06 | disposition home or self-care (01) | DRG 440 ==
LOC: 4 WEST ACU 20:00
PROVIDERS: Nurse Practitioner; Registered Nurse; ADMITTING PHYSICIAN Internal Medicine; ATTENDING PHYSICIAN Internal Medicine; CONSULT PHYSICIAN Internal Medicine Gastroenterology; EMERGENCY PHYSICIAN Student in an Organized Health Care Education/Training Program
DX: K85.20 Alcohol induced acute pancreatitis without necrosis or infection (principal); I11.0 Hypertensive heart disease with heart failure; M43.17 Spondylolisthesis, lumbosacral region; I25.10 Atherosclerotic heart disease of native coronary artery without angina pectoris; K57.30 Diverticulosis of large intestine without perforation or abscess without bleeding; K43.2 Incisional hernia without obstruction or gangrene; M45.9 Ankylosing spondylitis of unspecified sites in spine; F10.90 Alcohol use, unspecified, uncomplicated; K83.5 Biliary cyst; K86.89 Other specified diseases of pancreas; E78.00 Pure hypercholesterolemia, unspecified; J44.9 Chronic obstructive pulmonary disease, unspecified; D72.829 Elevated white blood cell count, unspecified; N40.0 Benign prostatic hyperplasia without lower urinary tract symptoms; K76.89 Other specified diseases of liver; Z90.49 Acquired absence of other specified parts of digestive tract; Z87.891 Personal history of nicotine dependence; Z90.411 Acquired partial absence of pancreas; Z86.010 Personal history of colon polyps; Z87.11 Personal history of peptic ulcer disease
CPT/HCPCS: 74177; 80048; 80053; 80061; 82248; 82787; 83690; 84478; 85025; 85027; 86140; 96361; 96374; 96375; 96376; 99285; Q9967